=== PATIENT | male | born 1955 | race Hispanic/Latino ===

== ENCOUNTER 2019-08-15 20:39 | Emergency (ER) | payer SELFPAY ==
--- NOTE | 2019-08-15 21:25 | RAD ---
Chest 2 views HISTORY: Cough. Wheezing. COMPARISON: 12/29/2018. FINDINGS: Cardiac silhouette and pulmonary vasculature are unremarkable. Mediastinum is midline. No c onfluent airspace consolidation, pneumothorax, or pleural fluid. Old right posterolateral mid rib fractures. IMPRESSION: No active cardiopulmonary abnormalities are demonstrated.
[2019-08-15] MEDS ORDERED: predniSONE 20 MG TAB ONE (21:57)
== END 2019-08-15 22:07 | disposition home or self-care (01) ==
LOC: MADERS 20:39
DX: J06.9 Acute upper respiratory infection, unspecified (principal); J45.909 Unspecified asthma, uncomplicated; Z79.51 Long term (current) use of inhaled steroids
CPT/HCPCS: 71046; 87804; J7512; J7620

== ENCOUNTER 2020-10-29 09:09 | Outpatient (CLI) | payer SELFPAY ==
--- NOTE | 2020-10-29 10:37 | ULT ---
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 COMPARISON: None. FINDING: Grayscale and color Doppler ultrasound images were submitted of the region of interest. The re is a hypoechoic nonvascularized fluid type collection seen adjacent and medial to the femoral vessels within the right inguinal region measuring approximately 1.6 x 0.5 cm. No additional suspicio us focal lesion is evident. No lymphadenopathy is noted. IMPRESSION:Small hypoechoic fluidlike cystic collection in the right femoral canal, medial and inferi or to the right femoral vessels, is suspicious for a fluid containing femoral canal hernia. Would recommend further evaluation with a CT of the abdomen and pelvis with IV and enteric contrast for add itional characterization
== END 2020-10-29 09:10 | disposition home or self-care (01) ==
LOC: MADULT 09:09
PROVIDERS: ATTEND Family Medicine
DX: R19.09 Other intra-abdominal and pelvic swelling, mass and lump (principal)
CPT/HCPCS: 76999